=== PATIENT | male | born 1985 | race Caucasian/White ===

== ENCOUNTER → 2017-12-15 | Emergency (ER) | payer OTHER ==
[2017-12-15] MEDS: KETOROLAC 30 MG INJ IM (02:35)
== END | disposition home or self-care (01) ==
LOC: E/R 01:24
DX: J06.9 Acute upper respiratory infection, unspecified (principal); R51 Headache; F17.210 Nicotine dependence, cigarettes, uncomplicated
CPT/HCPCS: 96372; 99284-25